=== PATIENT | female | born 1980 | race Two or more races ===

== ENCOUNTER 2016-05-08 18:05 | Emergency (ER) | payer MEDICAID ==
[~2016-05-08] VITALS: Ht 162.6 cm; Wt 70.0 kg
[2016-05-08] MEDS ORDERED: FENTANYL CITRATE/PF 50MCG/ML 2ML VIAL IV ONE (21:00)
[2016-05-08] MEDS ORDERED: LORAZEPAM 2MG/ML CPJ IV ONE (21:00)
[2016-05-09 00:20] VITALS: BP 120/75
== END 2016-05-09 01:09 | disposition home or self-care (01) ==
LOC: ER 18:06
DX: S03.00XA Dislocation of jaw, unspecified side, initial encounter (principal); X58.XXXA Exposure to other specified factors, initial encounter; Y93.89 Activity, other specified
CPT/HCPCS: 70100; 70330; 81025; 96374; 96375; 99284; J2060; J3010; Z7610